=== PATIENT | female | born 2000 | race Caucasian/White ===

== ENCOUNTER 2022-01-19 15:12 | Outpatient (CLI) | payer OTHER ==
[~2022-01-19 15:12] MED LIST: Iopamidol 300 61% 100 ML VIAL FS ONE
== END 2022-01-19 15:13 | disposition home or self-care (01) ==
LOC: CSHCT 15:12
PROVIDERS: ATTEND Student in an Organized Health Care Education/Training Program
DX: R22.1 Localized swelling, mass and lump, neck (principal); R59.0 Localized enlarged lymph nodes
CPT/HCPCS: 70491; Q9967